=== PATIENT | male | born 2000 | race Caucasian/White ===

== ENCOUNTER 2023-11-01 08:02 | Emergency (ER) | payer MEDICAID ==
[~2023-11-01] VITALS: Ht 188 cm; Wt 90.2 kg
[2023-11-01 08:09] VITALS: TEMP 97.8
[2023-11-01] MEDS ORDERED: CLIN-97 PO (09:26)
[2023-11-01] MEDS ORDERED: IBUP-1985 PO (09:26)
[2023-11-01 09:30] VITALS: BP 133/74; PULSE 71; RESP 14; O2SAT 98
== END 2023-11-01 09:34 | disposition home or self-care (01) ==
LOC: ER 08:03
DX: K04.7 Periapical abscess without sinus (principal)
CPT/HCPCS: 99283

== ENCOUNTER 2024-12-24 10:45 | Emergency (ER) | payer MEDICAID ==
[~2024-12-24] VITALS: Ht 188 cm; Wt 84.1 kg
[~2024-12-24 10:45] MED LIST: CLIN-224 PO; IBUP600T52 PO
[2024-12-24 10:52] VITALS: TEMP 97
[2024-12-24 11:21] LABS: MEAN PLATELET VOLUME 8.6 FL (7.4-10.4); RED CELL DISTRIBUTION WIDTH 13.1 % (11.5-14.5)
[2024-12-24 11:41] LABS: CREATININE 0.93 MG/DL (0.60-1.10); TOTAL CARBON DIOXIDE 24.7 MMOL/L (24-32); eCRCL 140 ML/MIN; eGFR > 90 ML/MIN
--- NOTE | 2024-12-24 12:15 | Physician Documentation ---
History of Present Illness Chief Complaint: Abdominal Pain Stated Complaint: ABDOMINAL PAIN HPI This is a 24-year-old male who presents with epigastric pain and vomiting onset this morning, patient reports no blood in emesis. Patient reports all over belly pain. States he had stirfry yesterday evening.. Denies any exacerbating or alleviating factors Day of Onset: Dec 24, 2024 Medication Reconciliation Allergies: Coded Allergies: No Known Allergies (Unverified , 12/24/24) Scheduled Clindamycin HCL* (Clindamycin HCL*), 1 CAP PO Q6H Ibuprofen (Ibuprofen), 1 TAB PO Q6H Omeprazole (Prilosec), 1 CAP PO DAILY Review of Systems ROS As stated above in the HPI, otherwise all systems are reviewed and negative. Physical Exam Vital Signs: Temperature: 97.0, Source: Temporal, Heart Rate: 57, Respiratory Rate: 18, BP: 159/83, Pulse Oximetry: 100, Weight: 84.090 Physical Exam VITALS: Reviewed and as above. GENERAL: Alert, nontoxic appearing, no apparent distress. HEENT: RESPIRATORY: No increased work of breathing, no respiratory distress, speaking in full clear sentences CHEST: CV: BACK: GI: Tenderness in all four quadrants, no rebound tenderness. Normal bowel sounds MUSCULOSKELETAL: SKIN: NEURO: PSYCH: Progress Results/Orders Results/Orders Orders - ELIN PRINCE Urinalysis, Cult If Indicated (12/24/24 10:54) Completed Orders - ELIN PRINCE Cbc/Diff (12/24/24 10:54) BMP (12/24/24 10:54) Lipase (12/24/24 10:54) CMP (12/24/24 10:54) Vital Signs 12/24/24 10:52 Temp 97.0 Pulse 57 Resp 18 B/P (MAP) 159/83 Pulse Ox 100 Laboratory Tests Test 12/24/24 11:09 White Blood Count 5.9 Red Blood Count 5.18 Hemoglobin 16.1 Hematocrit 47.4 Mean Corpuscular Volume 91.5 Mean Corpuscular Hemoglobin 31.0 Mean Corpuscular Hemoglobin Concent 33.9 Red Cell Distribution Width 13.1 Platelet Count 224 Mean Platelet Volume 8.6 Neutrophils (%) (Auto) 70.7 Lymphocytes (%) (Auto) 22.0 Monocytes (%) (Auto) 5.5 Eosinophils (%) (Auto) 1.4 Basophils (%) (Auto) 0.4 Neutrophils # (Auto) 4.2 Lymphocytes # (Auto) 1.3 Monocytes # (Auto) 0.3 Eosinophils # (Auto) 0.1 Basophils # (Auto) 0.0 CBC Comment Sodium Level 145 Potassium Level 3.9 Chloride Level 106 Carbon Dioxide Level 24.7 Anion Gap 14 Blood Urea Nitrogen 9 Creatinine 0.93 Estimated GFR/1.73 m2 > 90 BUN/Creatinine Ratio 9.7 L Glucose Level 110 H Calcium Level 9.4 Total Bilirubin 0.7 Aspartate Amino Transf (AST/SGOT) 20 Alanine Aminotransferase (ALT/SGPT) 28 Alkaline Phosphatase 84 Total Protein 8.5 H Albumin 4.5 Globulin 4.0 Albumin/Globulin Ratio 1.1 Lipase 34 Chemistry Comments Medical Decision Making Findings MSE performed in triage and patient returned to ED lobby by nursing staff to await available ED room Patient received Zofran and a GI cocktail and reported overall improved symptoms. Suspect he either GERD or gastritis. Lab values reassuring Differential Dx:Considerations: Include: AAA, Angina/MO, Aortic dissection, Appendicitis, Bowel obstruction, Cholangitis, Cholelithasis, Constipation, Diverticular disease, Esophageal rupture, Esophagitis, Gastritis/PUD, Gastroenteritis, GI hemorrhage, Hernia, Hepatitis, Inflammatory BD, Ischemic bowel, Pancreatitis, Porphyria, Testicular torsion, Trauma, intraabdominal, Urinary obstruction, Urinary tract infection, Urolithiasis, Other Departure Disposition: 01 HOME / SELF CARE / HOMELESS Impression: Primary Impression: Acute gastritis Discharge Instructions: Gastritis, Adult Referrals: NO PRIMARY CARE PROVIDER (PCP) Prescriptions Omeprazole (Prilosec) 40 Mg Capsule 1 CAP PO DAILY for 30 Days, #30 CAP Prov: DALJIT MAS NP 12/24/24 Education Educated: Patient Educated regarding: diagnosis Signature Scribe Signature: r Attestation: Scribed for Daljit Mas Plant Buy[employer] by Daljit Riggins NP . 12/24/24 14:41 ELIN PRINCE Dec 24, 2024 12:15 DALJIT MAS NP Dec 24, 2024 14:42
[2024-12-24] MEDS: ondansetron 4mg rapidly disintigrating tab PO ONE (14:01)
[2024-12-24] MEDS: mag hydrox/Alum hydrox/simeth 30ml oral suspension PO ONE (14:01)
[2024-12-24] MEDS: LIDOcaine 2% Viscous 15ml cup MM PRN (14:02)
[2024-12-24] MEDS ORDERED: OMEP40CA21 PO (14:42)
[2024-12-24 14:52] VITALS: BP 145/98; PULSE 98; RESP 18; O2SAT 98
== END 2024-12-24 14:59 | disposition home or self-care (01) ==
LOC: ER 10:45
DX: K29.00 Acute gastritis without bleeding (principal)
CPT/HCPCS: 36415; 80053; 83690; 85025; 99284